=== PATIENT | female | born 1940 | race Caucasian/White ===

== ENCOUNTER 2023-04-07 11:25 | Emergency (ER) | payer MEDICARE, BC, SELFPAY ==
[2023-04-07 11:34] VITALS: BP 142/62
--- NOTE | 2023-04-07 11:53 | ED.GENMED ---
History of Present Illness
<Lily Peterson PA-C - Last Filed: 04/07/23 14:21>
General
Chief Complaint: Weakness
Source: patient
Exam Limitations: none
Time Seen by Provider: 04/07/23 11:53
Nursing documentation reviewed up to this point in time: agreed with
Travel History
Have you had any contact with someone who has COVID-19?: No
Do you have any symptoms of coronavirus? Fever > 100 degrees, chills, cough, shortness of breath, sore throat, loss of taste or smell, muscle aches, or headache?: No
History of Present Illness
History of Present Illness:
This is a 82-year-old female with a past medical history of A-fib on Xarelto and metoprolol, hypothyroidism, presenting to the emergency department today with generalized weakness and shortness of breath. She states that 3 d days ago, she felt
palpitations and shortness of breath and stated that this is how she feels when she goes into afib. She looked at her apple watch and noticed that her heart rate was in the 140s. She called the investment accounting clerk director of plant operations at her cardiology office who
advised her to take an extra metoprolol. She states that her palpitations stopped, she felt a bit better, and her heart rate came back to her normal range (the 60s-70s). She states that 2 days ago, she had a similar episodes of palpitations, but it
was not as intense, and it only lasted a few minutes and quickly resolved. Patient states that she has been on xarelto and metoprolol for many years and has not gone into afib. She states that since the two episodes, she has felt a bit fatigued and
had some mild shortness of breath. She denies fevers or chills, dizziness, lightheadedness, chest pain.
Past History
<Lily Peterson PA-C - Last Filed: 04/07/23 14:21>
Past History
ED Past Medical History: Arrthythmia, Cancer, GERD, Hypercholesterolemia and Hypothyroidism
ED Past Surgical History: Other
Social History
Tobacco: Former smoker
Alcohol: Daily (wine 1 glass)
Drug: None
Personal:
Living: with family
Employment: Retired
Family History
Family History: Other (Noncontributory)
Review of Systems
<Lily Peterson PA-C - Last Filed: 04/07/23 14:21>
Review of Systems
All Other Systems: ROS reviewed and negative except as documented in HPI and ROS
Phy Exam
<Lily Peterson PA-C - Last Filed: 04/07/23 14:21>
Physical Exam
Physical Exam:
Vitals: vital signs are stable
General: patient is well appearing and in no acute distress
Skin: warm and dry, no rashes or lesions
Cardiac: regular rate and rhythm, no murmurs, rubs, or gallops
Pulm: normal respiratory effort. Some scattered rhonchi at the lung bases.
Peripheral Vascular: no lower extremity edema, 2+ dp/pt pulses.
Abdomen: no abdominal tenderness
Neuro: AAOx3. CN II-XII intact.
Course
<Lily Peterson PA-C - Last Filed: 04/07/23 14:21>
Orders/Labs/Results
Orders:
Orders
04/07/23 11:34
EKG [Electrocardiogram (*1)] Urgent
Reason for Study: Fatigue / Weakness
EKG- Treatment ONCE
04/07/23 12:18
0.9% Sodium Chloride 250 ml [Nss] 250 ml IV BOLUS
04/07/23 12:20
CR Chest - 2 Views Urgent
Comment:
Reason For Exam: shortness of breath
04/07/23 12:40
Complete Blood Count/With Diff Urgent
Comprehensive Metabolic Panel Urgent
Abnormal Lab Results
04/07/23
12:40
RBC 4.13 L 10^6/uL
(4.20-5.40)
MPV 12.8 H fL
(7.4-10.4)
Chloride 108 H mmol/L
(98-107)
BUN 18 H mg/dl
(7-17)
04/07/23 12:40
04/07/23 12:40
Vital Signs
Initial and Last Documented VS:
Initial Vital Signs
Temp Pulse Resp BP Pulse Ox
98.4 F 57 18 142/62 100
04/07/23 11:34 04/07/23 11:34 04/07/23 11:34 04/07/23 11:34 04/07/23 11:34
Last Documented Vital Signs
Temp Pulse Resp BP Pulse Ox
98.4 F 77 22 143/72 99
04/07/23 11:34 04/07/23 13:45 04/07/23 13:45 04/07/23 13:31 04/07/23 13:12
<John Loyd, DO - Last Filed: 04/07/23 12:22>
Orders/Labs/Results
Orders:
Orders
04/07/23 11:34
EKG [Electrocardiogram (*1)] Urgent
Reason for Study: Fatigue / Weakness
EKG- Treatment ONCE
04/07/23 12:18
0.9% Sodium Chloride 250 ml [Nss] 250 ml IV BOLUS
04/07/23 12:20
CR Chest - 2 Views Urgent
Comment:
Reason For Exam: shortness of breath
04/07/23 12:40
Complete Blood Count/With Diff Urgent
Comprehensive Metabolic Panel Urgent
Abnormal Lab Results
04/07/23
12:40
RBC 4.13 L 10^6/uL
(4.20-5.40)
MPV 12.8 H fL
(7.4-10.4)
Chloride 108 H mmol/L
(98-107)
BUN 18 H mg/dl
(7-17)
04/07/23 12:40
04/07/23 12:40
Vital Signs
Initial and Last Documented VS:
Initial Vital Signs
Temp Pulse Resp BP Pulse Ox
98.4 F 57 18 142/62 100
04/07/23 11:34 04/07/23 11:34 04/07/23 11:34 04/07/23 11:34 04/07/23 11:34
Last Documented Vital Signs
Temp Pulse Resp BP Pulse Ox
98.4 F 77 22 143/72 99
04/07/23 11:34 04/07/23 13:45 04/07/23 13:45 04/07/23 13:31 04/07/23 13:12
<Lily Peterson PA-C - Last Filed: 04/07/23 14:21>
MDM/Problems Addressed
Differential Diagnosis Includes:
ddx include upper respiratory tract infection, atrial fibrillation, atrial flutter, metoprolol side effect, pneumonia
MDM/Problems Addressed:
weakness
shortness of breath
Chronic conditions affecting care: HTN, Arrhythmia and Cancer (hx of breast cancer)
Acute Exacerbation and/or Progression of Chronic Illness: HTN
<Lily Peterson PA-C - Last Filed: 04/07/23 14:21>
*Radiology
Radiology exam reviewed: preliminary read by ED provider (no acute cardiopulmonary abnormality)
*Pulse Oximetry
Patient hypoxic: no
*Recycle Worker Interpretation
Rate: normal
Interpretation: normal
Heart Rate: 75
Rhythm: sinus
*Critical Care Note
Total Time (30-74mins, 75-104mins- exclusive of procedures): Not Applicable
Data Reviewed
Review of Other/Old Records Reveals: Records (Reviewed ER physician documentation from 10/16/2022, reviewed ER physician documentation from 12/08/2018)
Source: patient
<Lily Peterson PA-C - Last Filed: 04/07/23 14:21>
Patient Management
Escalation/DeEscalation of care consider admission/obs:
82-year-old female with past medical history of A-fib on Xarelto and metoprolol, presenting to emergency department today with shortness of breath and fatigue following an episode of A-fib that occurred 3 days ago. She states Here in the emergency
department, her vital signs are stable and she has not gone into here. On her physical exam, she is well appearing and she had some scattered rhonchi at the bases. Her CXR did not show any acute cardiopulmonary abnormality. We gave her 500 ml NS.
She states that she feels like her symptoms have largerly improved and only admits to some mild fatigue and weakness at this point. She is stable for discharge, she will follow up with Dr. Marsh, her investment accounting clerk, soon.
ED Attending Note
<Lily Peterson PA-C - Last Filed: 04/07/23 14:21>
-
Portions of this chart may have been created with voice recognition software.� Occasional wrong word or��sound alike� substitutions may have occurred due to the inherent limitations of voice recognition software.
<John Loyd DO - Last Filed: 04/07/23 12:22>
ED Attending Note
Patient seen and examined by attending physician: Yes
I performed the substantive portion of visit, reviewed & personally made and approve the management plan that is documented in note by myself or AISHA.: Yes
I performed a history and physical exam of patient and discussed management with resident, I reviewed resident's note and agree with documented findings and plan of care.: Yes
ED Attending Note:
I evaluated patient at bedside. The patient does have a history of A-fib on Xarelto and felt she went into A-fib recently. She called her investment accounting clerk who recommend she take an extra dose of Toprol. Currently she does not have sensation of A-fib
or palpitations. She does have some very mild shortness of breath which is overall improved compared to prior. She does some rhonchi on exam. Currently she is in a sinus rhythm with rates in the 60s and sats are 98% on room air and she does not
appear to be in any distress. Will give some IV fluids.
Discharge Plan
Departure
Patient Disposition: Home (Routine Discharge)
Date of Disposition: 04/07/23
Time of Disposition: 13:52
Patient with high blood pressure during this ER visit?: Yes
Condition: Good
Discharge Problem:
Weakness
Instructions: Generalized Weakness (DC), Shortness of Breath, Adult ED, BLOOD PRESSURE
Prescriptions:
No Action
levothyroxine [Levoxyl] 112 MCG tablet
112 mcg PO DAILY
pitavastatin calcium [Livalo] 2 MG tablet
2 mg PO DAILY
rivaroxaban [Xarelto] 20 MG tablet
20 mg PO QPM Qty: 15 0RF
metoprolol succinate [Toprol XL] 25 MG tablet extended release 24 hr
25 mg PO DAILY Qty: 30 0RF
albuterol sulfate [ProAir HFA] 90 mcg/actuation HFA aerosol inhaler
1 puff inhalation Q4HPRN PRN (Reason: shortness of breath) Qty: 8.5 0RF
azithromycin [Zithromax] 200 mg/5 mL suspension for reconstitution
See Rx Instructions .ROUTE .COMPLEX Qty: 30 0RF
Rx Instructions:
200 mg daily for 4 days, starting 10/17/22
Referrals:
Bret Marsh MD [Active] - Call in 1-3 days for appt
Activity Restrictions/Additional Instructions:
Please follow up with your primary care provider.
Please call Dr. Marsh's office for an appointment.
Please return to the emergency department should you experience CHEST PAIN, SHORTNESS OF BREATH, CONFUSION, DIZZINESS, FAINTING SPELLS, OR OTHER SYMPTOMS CONCERNING TO YOU.
Interventions
Interventions:
*Risk Screen - Suicide Last Done: 04/07/23 12:30
*General Assessment Last Done: 04/07/23 12:30
*Neglect/Abuse Screening Last Done: 04/07/23 12:30
*ED COVID-19 Vaccine History Last Done: 04/07/23 12:30
ED- Cardiac Assessment Last Done: 04/07/23 12:30
ED- Neurological Assessment Last Done: 04/07/23 12:30
ED- Pulmonary Assessment Last Done: 04/07/23 12:30
[2023-04-07] MEDS: NSS 250 IV (12:42)
[2023-04-07 12:57] LABS: % Basophils 1.2 % (0-2); % Eosinophils 2.7 % (0-6); % Immature Granulocytes 0.2 % (0-0.5); % Lymphocytes 27.3 % (20.5-51.1); % Monocytes 8.1 % (1.7-9.3); % Neutrophils 60.5 % (42.2-75.2); Absolute Basophils 0.1 10^3/uL (0-0.2); Absolute Eosinophils 0.1 10^3/uL (0-0.7); Absolute Lymphocytes 1.3 10^3/uL (1.2-3.4); Absolute Monocytes 0.4 10^3/uL (0.1-0.6); Absolute Neutrophils 2.9 10^3/uL (1.4-6.5); Hematocrit 37.3 % (37.0-47.0); Hemoglobin 12.6 g/dL (12.0-16.0); Mean Corp Hgb Conc. 33.8 g/dL (33.0-37.0); Mean Corpuscular Hgb 30.5 pg (27.0-31.0); Mean Corpuscular Volume 90.3 fL (81.0-99.0); Mean Platelet Volume 12.8 fL (7.4-10.4); Nucleated Red Blood Cells % 0 %; Platelet Count 138 10^3/uL (130-400); Red Blood Cell Count 4.13 10^6/uL (4.20-5.40); Red Cell Dist. Width 14.2 % (11.5-14.5); White Blood Cell Count 4.8 10^3/uL (4.8-10.8)
[2023-04-07 13:08] LABS: ALT (SGPT) 18 U/L (0-35); AST (SGOT) 27 U/L (14-36); Albumin 4.1 g/dl (3.5-5.0); Alkaline Phosphatase 48 U/L (38-126); Blood Urea Nitrogen 18 mg/dl (7-17); Calcium 9.2 mg/dl (8.4-10.2); Carbon Dioxide 28 mmol/L (22-30); Chloride 108 mmol/L (98-107); Glucose 84 mg/dl (70-99); Potassium 4.2 mmol/L (3.5-5.1); Sodium 139 mmol/L (135-145); Total Bilirubin 0.5 mg/dl (0.2-1.3); Total Protein 6.3 g/dl (6.3-8.2); eGFR > 60.00
[2023-04-07 13:31] VITALS: BP 143/72
== END 2023-04-07 14:12 | disposition home or self-care (01) ==
LOC: EMR 11:25
PROVIDERS: Physician Assistant; EMERGENCY PHYSICIAN Emergency Medicine; FAMILY PHYSICIAN Family Medicine
DX: R53.1 Weakness (principal); I10 Essential (primary) hypertension; E03.9 Hypothyroidism, unspecified; Z87.891 Personal history of nicotine dependence
CPT/HCPCS: 99285; 96360; 71046; 80053; 85025; 93005

== ENCOUNTER → 2023-05-05 11:08 | Outpatient (REF) | payer MEDICARE, BC, SELFPAY | LOC: DHCBS HW 11:08 | PROVIDERS: ATTENDING PHYSICIAN Nurse Practitioner; FAMILY PHYSICIAN Family Medicine | DX: R06.02 Shortness of breath (principal); R53.83 Other fatigue | CPT/HCPCS: 93306 ==

== ENCOUNTER → 2023-11-17 07:19 | Outpatient (REF) | payer MEDICARE, BC, SELFPAY | LOC: PAVMRI 07:19 | PROVIDERS: ATTENDING PHYSICIAN Physician Assistant; FAMILY PHYSICIAN Family Medicine | DX: M54.14 Radiculopathy, thoracic region (principal); M54.9 Dorsalgia, unspecified | CPT/HCPCS: 72146 ==

== ENCOUNTER → 2023-11-18 08:53 | Outpatient (REF) | payer MEDICARE, BC, SELFPAY | LOC: MRI 3T 08:53 | PROVIDERS: ATTENDING PHYSICIAN Physician Assistant; FAMILY PHYSICIAN Family Medicine | DX: M54.50 Low back pain, unspecified (principal) | CPT/HCPCS: 72148 ==

== ENCOUNTER 2024-03-29 13:26 | Emergency (ER) | payer MEDICARE, BC, SELFPAY ==
[2024-03-29 13:35] VITALS: BP 151/66
[2024-03-29 14:03] LABS: Urine Albumin Negative (Neg - Trace); Urine Bilirubin Negative (Negative); Urine Character Clear (Clear); Urine Color Yellow; Urine Glucose Negative (Negative); Urine Ketone Negative (Negative); Urine Leukocyte Negative (Negative); Urine Nitrite Negative (Negative); Urine Occult Blood Negative (Negative); Urine Urobilinogen Negative (Neg - 1+)
[2024-03-29 14:05] LABS: % Basophils 1.1 % (0-2); % Eosinophils 1.4 % (0-6); % Immature Granulocytes 0.2 % (0-0.5); % Lymphocytes 32.4 % (20.5-51.1); % Monocytes 7.9 % (1.7-9.3); Absolute Basophils 0.1 10^3/uL (0-0.2); Absolute Eosinophils 0.1 10^3/uL (0-0.7); Absolute Lymphocytes 1.8 10^3/uL (1.2-3.4); Absolute Monocytes 0.5 10^3/uL (0.1-0.6); Absolute Neutrophils 3.2 10^3/uL (1.4-6.5); Hematocrit 38.1 % (37.0-47.0); Hemoglobin 12.9 g/dL (12.0-16.0); Mean Corp Hgb Conc. 33.9 g/dL (33.0-37.0); Mean Corpuscular Volume 88.6 fL (81.0-99.0); Mean Platelet Volume 11.9 fL (7.4-10.4); Nucleated Red Blood Cells % 0 %; Platelet Count 148 10^3/uL (130-400); Red Cell Dist. Width 13.6 % (11.5-14.5); White Blood Cell Count 5.7 10^3/uL (4.8-10.8)
[2024-03-29 14:12] LABS: COVID-19 Antigen Negative (Negative)
[2024-03-29 14:13] LABS: ALT (SGPT) 15 U/L (0-35); AST (SGOT) 25 U/L (14-36); Albumin 4.2 g/dl (3.5-5.0); Alkaline Phosphatase 48 U/L (38-126); Blood Urea Nitrogen 10 mg/dl (7-17); Calcium 8.9 mg/dl (8.4-10.2); Carbon Dioxide 28 mmol/L (22-30); Chloride 104 mmol/L (98-107); Glucose 83 mg/dl (70-99); Potassium 4.1 mmol/L (3.5-5.1); Sodium 136 mmol/L (135-145); Total Bilirubin 0.5 mg/dl (0.2-1.3); Total Protein 6.5 g/dl (6.3-8.2); eGFR > 60.00
[2024-03-29 14:27] LABS: Monotest Negative (Negative)
[2024-03-29 15:08] VITALS: BMI 23.3
[2024-03-29 15:26] VITALS: BP 177/72
--- NOTE | 2024-03-29 15:36 | ED.GENMED ---
History of Present Illness
General
Chief Complaint: Weakness
Source: patient
Exam Limitations: none
Time Seen by Provider: 03/29/24 15:01
Nursing documentation reviewed up to this point in time: agreed with
History of Present Illness
History of Present Illness:
83 y/o F with h/o PAF on xarelto, metoprolol, GERD, hld, HYPOTHYROID
says she has been havinga few weeks of fatigue, low energy, and feeling like her legs are weaker than they should be.
She walks unassisted and has not needed to use an assistive device to walk around since this started but she feels like her legs may give out on her or she is just not sure of herself. Seems to get worse as the day goes on. When she first gets out
of bed she does have some back pain but that seems to also dissipate but then the weakness progresses. She has not had it extend past her legs. She has no trouble swallowing and no ptosis of her eyelids or fatigue with chewing. Patient has not
had any chest pain, exertional pain but has felt some intermittent dyspnea which sometimes is at rest and sometimes with walking. However it is not consistent. She has not felt her heart race or any palpitations. Pretty much patient lives in
sinus rhythm.
She saw her doctor about a week and a half ago who did some lab work and told her that she had maybe a low vitamin B12 and gave her vitamin B12 tablets. She is felt no difference since taking that.
Patient has not had any bleeding, numbness, tingling, weakness in the legs, incontinence or urinary retention, significant back pain, stiffness in her hips or shoulders, neck pain, headache.
It is really unclear why she is here today other than feeling frustrated by the fact that she still so fatigued. No new symptoms occur today. She has not had a recent vaccine or recent illness that she knows of
Past History
Past History
ED Past Medical History: Arrthythmia, Cancer, GERD, Hypercholesterolemia and Hypothyroidism
ED Past Surgical History: Other
Social History
Tobacco: Former smoker
Alcohol: Daily (wine 1 glass)
Drug: None
Personal:
Living: with family
Employment: Retired
Family History
Family History: Other (Noncontributory)
Review of Systems
Review of Systems
Allergies reviewed?: Yes
All Other Systems: Not applicable
Phy Exam
Physical Exam
Physical Exam:
GENERAL: Alert , in no apparent distress
HEAD: NCAT
EYE: pupils equal and reactive, no nystagmus, no photophobia
NECK: Supple,full rom, nontender
ENT: o/p clr, mmm.
CARDIAC: Regular rate and rhythm . no edema
LUNGS: Clear breath sounds bilaterally, no acute respiratory distress, no wheezes/rales/rhonchi
ABDOMEN: Soft, without focal tenderness, no r/g, no cvat
NEUROLOGICAL: Alert and orientedx 4, cn intact, no facial asymmetry, 5/5 strength in UE/LE, sensation intact, romberg neg, ambulates without assistance, neg pronator drift 2-3+ PATELLAR REFLEXES 2+ achilles reflex;
SKIN: Warm and dry, skin intact.
MUSCULOSKELETAL: No edema, well perfused.
back: nontneder
neg straight leg raise b/l
sensation intact
PSYCH: Normal and appropriate interaction.
Course
Orders/Labs/Results
Orders:
Orders
03/29/24 13:50
COVID-19 Antigen Urgent
Source: Nasal Swab
Complete Blood Count/With Diff Urgent
Comprehensive Metabolic Panel Urgent
Monotest Urgent
Urinalysis Reflex To Culture Urgent
Date Specimen was Collected: 03/29/24
Time Specimen was Collected: 13:38
Influenza A+B Rapid Molecular Urgent
KEVIN Source: Nasal Swab
Specimen Description:
Date Specimen was Collected: 03/29/24
Time Specimen was Collected: 13:38
03/29/24 15:04
Electrocardiogram (*1) Urgent
Reason for Study: Fatigue / Weakness
EKG- Treatment ONCE
03/29/24 15:29
Bladder Scan- Treatment ONCE
CR Chest - 2 Views Urgent
Comment:
Reason For Exam: fatigue, sob
Lumbar Spine Complete, 4 View [CR Lumbar Spine Comp Min 4 Vw*] Urgent
Comment:
Reason For Exam: leg weakness
03/29/24 15:30
Orthostatic VS- Treatment ONCE
NT-proBNP Urgent
Troponin I Urgent
03/29/24 16:06
Add On- LAB Urgent
Tests Added?: tsh reflex t4
Abnormal Lab Results
03/29/24
13:50
MPV 11.9 H fL
(7.4-10.4)
03/29/24 13:50
03/29/24 13:50
Vital Signs
Initial and Last Documented VS:
Initial Vital Signs
Temp Pulse Resp BP Pulse Ox
36.6 C 60 16 151/66 99
03/29/24 13:35 03/29/24 13:35 03/29/24 13:35 03/29/24 13:35 03/29/24 13:35
Last Documented Vital Signs
Temp Pulse Resp BP Pulse Ox
36.6 C 66 21 177/72 98
03/29/24 13:35 03/29/24 15:30 03/29/24 15:30 03/29/24 15:26 03/29/24 15:30
MDM/Problems Addressed
Differential Diagnosis Includes:
hypothyoid, viral syndrome, spinal stenosis, uti, PMR
MDM/Problems Addressed:
83 y/o F
PAF on eliquis, hypothyorid
here with af ew weeks of feeling gen fatigue and leg fatigue/weakness
not focal
able to walk
able to urinate
minimal back pain but worse in the morning, not significant
no exertional cp
some mild sob at times
pt appears well
able to get herself up and walk unassisted
has strength, reflexes, sensation, ful lROM of her LE
she has no ptosis or trouble swallowing
vitals slightly hypertensive
no AF, pt is in sinus with occ pACS
orthostatics neg
labs unremarkable
added on cardiac markers, bnp, and tsh
ua neg
reviweing old records, pt had previous leg weakness secondary to lumbar deg disc disease and some significant stenosis but not central canal on lumbar MRI in 2019 and she went to PT/rehab;
ED Attending Note
-
Portions of this chart may have been created with voice recognition software.� Occasional wrong word or��sound alike� substitutions may have occurred due to the inherent limitations of voice recognition software.
Discharge Plan
Departure
Condition: Fair
Covid-19: Not Applicable
Discharge Problem:
Fatigue, Leg weakness
Instructions: Generalized Weakness (DC)
Prescriptions:
No Action
levothyroxine [Levoxyl] 112 MCG tablet
112 mcg PO DAILY
pitavastatin calcium [Livalo] 2 MG tablet
2 mg PO DAILY
rivaroxaban [Xarelto] 20 MG tablet
20 mg PO QPM Qty: 15 0RF
metoprolol succinate [Toprol XL] 25 MG tablet extended release 24 hr
25 mg PO DAILY Qty: 30 0RF
albuterol sulfate [ProAir HFA] 90 mcg/actuation HFA aerosol inhaler
1 puff inhalation Q4HPRN PRN (Reason: shortness of breath) Qty: 8.5 0RF
azithromycin [Zithromax] 200 mg/5 mL suspension for reconstitution
See Rx Instructions .ROUTE .COMPLEX Qty: 30 0RF
Rx Instructions:
200 mg daily for 4 days, starting 10/17/22
Referrals:
Fidel Bunch DO [Family Provider] -
Interventions
Interventions:
*Risk Screen - Suicide Last Done: 03/29/24 13:38
*General Assessment Last Done: 03/29/24 15:09
*Neglect/Abuse Screening Last Done: 03/29/24 15:09
ED- Cardiac Assessment Last Done: 03/29/24 15:09
ED- Neurological Assessment Last Done: 03/29/24 15:09
ED- Pulmonary Assessment Last Done: 03/29/24 15:09
Discharge Date and Time
Print Language: CZECH
[2024-03-29 16:02] VITALS: BP 160/87; BP 173/76; BP 177/80; PULSE 62; PULSE 63; PULSE 65
[2024-03-29 17:19] LABS: NT-proBNP 374 pg/ml; Troponin I 0.014 ng/ml
[2024-03-29 17:47] VITALS: BP 156/65
[2024-03-29 18:41] LABS: TSH Reflex To Free T4 0.52 uIU/ml (0.47-4.68)
== END 2024-03-29 18:37 | disposition home or self-care (01) ==
LOC: EMR 13:26
PROVIDERS: Emergency Medicine; Physician Assistant; EMERGENCY PHYSICIAN Emergency Medicine; FAMILY PHYSICIAN Family Medicine
DX: R53.83 Other fatigue (principal); M62.81 Muscle weakness (generalized); R06.02 Shortness of breath; M54.9 Dorsalgia, unspecified; Z11.52 Encounter for screening for COVID-19; I48.0 Paroxysmal atrial fibrillation; K21.9 Gastro-esophageal reflux disease without esophagitis; E78.00 Pure hypercholesterolemia, unspecified; E03.9 Hypothyroidism, unspecified; M43.16 Spondylolisthesis, lumbar region; M48.061 Spinal stenosis, lumbar region without neurogenic claudication; Z79.01 Long term (current) use of anticoagulants; Z79.899 Other long term (current) drug therapy; Z87.891 Personal history of nicotine dependence; Z88.1 Allergy status to other antibiotic agents
CPT/HCPCS: 99285; 51798; 71046; 72110; 80053; 81003; 83880; 84443; 84484; 85025; 86308; 87502; 87811; 93005

== ENCOUNTER → 2024-06-11 14:51 | Outpatient (REF) | payer MEDICARE, BC, SELFPAY | LOC: PAVMRI 14:51 | PROVIDERS: ATTENDING PHYSICIAN Nurse Practitioner Adult Health; FAMILY PHYSICIAN Family Medicine | DX: G31.84 Mild cognitive impairment of uncertain or unknown etiology (principal) | CPT/HCPCS: 70553; A9575 ==

== ENCOUNTER → 2024-07-11 06:55 | Outpatient (REF) | payer MEDICARE, BC, SELFPAY ==
[2024-07-11 08:03] LABS: Erythrocyte Sed Rate 13 mm/hour (0-20)
[2024-07-11 08:15] LABS: Creatine Phosphokinase 43 U/L (30-135); Glucose 86 mg/dl (70-99)
[2024-07-11 08:28] LABS: C-Reactive Protein < 5.00 mg/L (0.0-10.00)
[2024-07-11 09:47] LABS: Folate 16.1 ng/ml (2.76-20); Vitamin B12 716 pg/ml (239-931)
[2024-07-12 00:44] LABS: IgM 300 mg/dl (40-230)
[2024-07-12 12:15] LABS: Lyme Antibody Screen, EIA Negative (Negative)
== END ==
LOC: REG 06:55
PROVIDERS: ATTENDING PHYSICIAN Specialist; FAMILY PHYSICIAN Family Medicine
DX: R53.1 Weakness (principal); R79.0 Abnormal level of blood mineral; G60.3 Idiopathic progressive neuropathy
CPT/HCPCS: 36415; 82085; 82550; 82607; 82746; 82784; 82947; 84155; 84165; 85652; 86140; 86618

== ENCOUNTER → 2024-07-24 13:42 | Outpatient (REF) | payer MEDICARE, BC, SELFPAY | LOC: MRI 13:42 | PROVIDERS: ATTENDING PHYSICIAN Nurse Practitioner Family; FAMILY PHYSICIAN Family Medicine | DX: R53.1 Weakness (principal); M51.360 Other intervertebral disc degeneration, lumbar region with discogenic back pain only | CPT/HCPCS: 72148 ==

== ENCOUNTER → 2024-07-25 12:52 | Outpatient (REF) | payer MEDICARE, BC, SELFPAY | LOC: RCS 12:52 | PROVIDERS: ATTENDING PHYSICIAN Physician Assistant; FAMILY PHYSICIAN Family Medicine | DX: I48.0 Paroxysmal atrial fibrillation (principal); R06.02 Shortness of breath; I35.1 Nonrheumatic aortic (valve) insufficiency | CPT/HCPCS: 93306 ==

== ENCOUNTER 2025-01-10 06:58 | Emergency (ER) | payer MEDICARE, BC, SELFPAY ==
[2025-01-10 07:04] VITALS: BP 130/67
--- NOTE | 2025-01-10 07:14 | ED.GENMED ---
History of Present Illness
General
Chief Complaint: Back Pain
Source: patient
Exam Limitations: none
Time Seen by Provider: 01/10/25 07:13
Nursing documentation reviewed up to this point in time: agreed with
History of Present Illness
History of Present Illness:
84 yo female with h/o arthritis, thoracic radiculopathy, hypothyroid, hyperlipidemia, right breast CA with mastectomy 2014, chronic fatigue, chronic shortness of breath, PAF on Xarelto, chronic back pain presents for exacerbation of this pain. Pain
08/23 right lower back with radiation to right buttock and lateral hip. She reports that the pain worsened over the past few days and made it difficult for her to get out of bed. The patient used capsaicin cream with little relief. She has taken no
other medication for the pain. She states she was pain-free and mobile until four days ago when the present episode began. She denies any recent overuse or injury, denies leg weakness beyond baseline, loss of bowel or bladder control, and systemic
symptoms like fever or chills. Denies CP, SOB, abdominal pain, constipation, UTI symptoms.
Patient with history of chronic back pain and in November 2023 had MRI of lumbar and thoracic areas, multilevel DJD of lumbar, thoracic MRI was clear and had no DJD, pain at that time thought to be due to lymphedema and implant.
Last echocardiogram on 07/25/2024 EF 76%, mild to moderate aortic and tricuspid regurgitation, no significant findings from previous year.
Past History
Past History
ED Past Medical History: Arrthythmia, Cancer, GERD, Hypercholesterolemia and Hypothyroidism
Social History
Tobacco: Former smoker
Alcohol: Daily (wine 1 glass)
Drug: None
Personal:
Living: with family
Employment: Retired
Family History
Family History: Other (Noncontributory)
Review of Systems
Review of Systems
Allergies reviewed?: Yes
All Other Systems: ROS reviewed and negative except as documented in HPI and ROS
: Denies incontinence
Phy Exam
Physical Exam
Physical Exam:
GENERAL: No acute distress. A&Ox3.
CONSTITUTIONAL: Afebrile.
EYES: clear, conjunctivae normal
ENMT: moist mucus membranes, Pharynx nl
RESPIRATORY: Regular respirations, nonlabored, lungs clear.
CARDIOVASCULAR: Regular rate and rhythm, no murmurs, no rubs. Normal pedal pulses, brisk capillary refill, radial pulses normal.
GI: Soft, nontender, normal BS, no palpable masses or bruits
MUSCULOSKELETAL: Entire spine palpated and pt states 'yes' when asked if it it tender. Most tender to palpation R lower back and upper buttock. SLR bilaterally elicits pain, R > L. Full ROM. Pelvis non tender. No edema. Well perfused.
SKIN: Warm, dry, pink
PSYCH: Normal mood and affect. Well kept, interactive and appropriate
NEUROLOGIC: Awake, alert and oriented, forgetful regarding past. No focal neurological deficits, strength 5/5 equal throughout.
Course
Orders/Labs/Results
Orders:
Orders
01/10/25 07:55
Dexamethasone [Decadron] 10 mg PO NOW STA
01/10/25 07:56
Acetaminophen [Tylenol] 650 mg PO NOW STA
01/10/25 08:33
CRP [C-Reactive Protein] Urgent
Complete Blood Count/With Diff Urgent
Comprehensive Metabolic Panel Urgent
01/10/25 09:41
Urinalysis Reflex To Culture Urgent
Date Specimen was Collected: 01/10/25
Time Specimen was Collected: 09:37
Urine Microscopic Reflex Cult Urgent
Abnormal Lab Results
01/10/25 01/10/25
08:33 09:41
MCHC 32.8 L g/dL
(33.0-37.0)
MPV 11.9 H fL
(7.4-10.4)
Absolute Lymphs (auto) 1.0 L 10^3/uL
(1.2-3.4)
Neutrophils % 77.4 H %
(42.2-75.2)
Lymphocytes % 12.8 L %
(20.5-51.1)
C-Reactive Protein 27.60 H mg/L
(0.0-10.00)
Urine Ketones 2+ A
(Negative)
Ur Occult Blood Reflex 3+ A
(Negative)
Urine RBC 11-15 A /HPF
(0-2)
Urine Bacteria (Reflex) Few A
(Negative)
Urine Albumin (Reflex) 1+ A
(Neg - Trace)
01/10/25 08:33
01/10/25 08:33
Vital Signs
Initial and Last Documented VS:
Initial Vital Signs
Temp Pulse Resp BP Pulse Ox
98.8 F 71 18 130/67 99
01/10/25 07:04 01/10/25 07:04 01/10/25 07:04 01/10/25 07:04 01/10/25 07:04
Last Documented Vital Signs
Temp Pulse Resp BP Pulse Ox
98.2 F 72 16 124/71 94
01/10/25 10:30 01/10/25 10:30 01/10/25 10:30 01/10/25 10:30 01/10/25 10:30
MDM/Problems Addressed
Differential Diagnosis Includes:
Acute exacerbation of chronic back pain, lumbar strain, herniated disc, osteoarthritis, sciatica, discitis
MDM/Problems Addressed:
84 yo female with h/o arthritis, thoracic radiculopathy, hypothyroid, hyperlipidemia, right breast CA with mastectomy 2014, chronic fatigue, chronic shortness of breath, PAF on Xarelto, chronic back pain presents for exacerbation of this pain. Pain
7/10 right lower back with radiation to right buttock and lateral hip. She reports that the pain worsened over the past few days and made it difficult for her to get out of bed. The patient used capsaicin cream with little relief. She has taken no
other medication for the pain. She states she was pain-free and mobile until four days ago when the present episode began. She denies any recent overuse or injury, denies leg weakness beyond baseline, loss of bowel or bladder control, and systemic
symptoms like fever or chills. Denies CP, SOB, abdominal pain, constipation, UTI symptoms.
Records reviewed: Patient with history of chronic back pain and in November 2023 had MRI of lumbar and thoracic areas, multilevel DJD of lumbar, thoracic MRI was clear and had no DJD, pain at that time thought to be due to lymphedema and implant.
No neuro deficits, no indication of AAA, no infectious findings, no cauda equina
The patient presented with exacerbated chronic back pain that has increased in severity over the past few days, significantly affecting her mobility. The examination indicated pain with movement and specific positions. There was no new systemic,
neurological, or bladder/bowel issue noted during the examination.
She does not remember having an MRI, doing P/T and clearly there is an element of dementia/memory problems, forgetfulness.
She does not know why she hasn't taken anything for pain such as Tylenol. at bedside gave her one of his pain pills early this a.m., is not sure what it was but says Hydrocodone sounds familiar.
agrees she has been complaining more than usual of back pain in the past 3 days
9:15 AM:
CBC normal
CMP normal
CRP 27.60
After Tylenol and Decadron, patient is out of bed and ambulating well saying her back 'still hurts' but she appears to be in no distress and is ambulating independently at a brisk gait with no assistive devices.
Symptoms are most likely consistent with exacerbation of her chronic back pain
Encouraged her to take Tylenol on a regular basis and I sent a prescription for a short burst of steroid to her pharmacy
She will follow-up with her PCP after the holiday weekend.
*Pulse Oximetry
SaO2: 98
Oxygen Mode of Delivery: Room air
Patient hypoxic: not evaluated
*Critical Care Note
Total Time (30-74mins, 75-104mins- exclusive of procedures): Not Applicable
ED Attending Note
-
Portions of this chart may have been created with voice recognition software.� Occasional wrong word or��sound alike� substitutions may have occurred due to the inherent limitations of voice recognition software.
Discharge Plan
Departure
Patient Disposition: Home (Routine Discharge)
Date of Disposition: 01/10/25
Time of Disposition: 09:59
Patient with high blood pressure during this ER visit?: No
Condition: Good
Discharge Problem:
Acute bilateral low back pain with right-sided sciatica
Instructions: Low Back Pain (DC), Sciatica (DC)
Prescriptions:
New
prednisone 20 mg tablet
40 mg PO DAILY Qty: 6 0RF
No Action
levothyroxine [Levoxyl] 112 MCG tablet
112 mcg PO DAILY
pitavastatin calcium [Livalo] 2 MG tablet
2 mg PO DAILY
rivaroxaban [Xarelto] 20 MG tablet
20 mg PO QPM Qty: 15 0RF
metoprolol succinate [Toprol XL] 25 MG tablet extended release 24 hr
25 mg PO DAILY Qty: 30 0RF
albuterol sulfate [ProAir HFA] 90 mcg/actuation HFA aerosol inhaler
1 puff inhalation Q4HPRN PRN (Reason: shortness of breath) Qty: 8.5 0RF
azithromycin [Zithromax] 200 mg/5 mL suspension for reconstitution
See Rx Instructions .ROUTE .COMPLEX Qty: 30 0RF
Rx Instructions:
200 mg daily for 4 days, starting 10/17/22
Referrals:
Fidel Bunch DO [Family Provider, Family Practice] - Follow up in 5-7 days
Activity Restrictions/Additional Instructions:
As we discussed, take Tylenol 1000 mg twice a day for the next 3 days to see if it helps.
I sent a prescription to your pharmacy for prednisone 40 mg a day for the next 3 days.
See your doctor next week if your pain is not much improved by then.
Interventions
Interventions:
*Risk Screen - Suicide Last Done: 01/10/25 10:30
*General Assessment Last Done: 01/10/25 09:55
*Neglect/Abuse Screening Last Done: 01/10/25 07:30
*ED- Fall Risk Assessment Last Done: 01/10/25 07:30
*ED COVID-19 Vaccine History Last Done: 01/10/25 09:55
*ED Influenza Vaccine History Last Done: 01/10/25 09:55
*Nursing Disposition Last Done: 01/10/25 10:30
ED-Musculoskeletal Assessment Last Done: 01/10/25 07:28
Discharge Date and Time
Discharge Date/Time: 01/10/25 10:30
Print Language: SOUTH [place]UD[place]
[2025-01-10 07:28] VITALS: BMI 22.0
[2025-01-10] MEDS: TYLENOL 650 MG PO (08:28)
[2025-01-10] MEDS: DECADRON 10 MG PO (08:29)
[2025-01-10 08:50] LABS: Hematocrit 38.7 % (37.0-47.0); Hemoglobin 12.7 g/dL (12.0-16.0); Mean Corp Hgb Conc. 32.8 g/dL (33.0-37.0); Mean Corpuscular Volume 90.0 fL (81.0-99.0); Nucleated Red Blood Cells % 0 %; Platelet Count 147 10^3/uL (130-400); Red Cell Dist. Width 13.2 % (11.5-14.5)
[2025-01-10 09:09] LABS: ALT (SGPT) 13 U/L (0-35); AST (SGOT) 20 U/L (14-36); Albumin 4.2 g/dl (3.5-5.0); Alkaline Phosphatase 102 U/L (38-126); Blood Urea Nitrogen 12 mg/dl (7-17); Calcium 9.2 mg/dl (8.4-10.2); Carbon Dioxide 30 mmol/L (22-30); Chloride 103 mmol/L (98-107); Estimated Creatinine Clearance 38 ml/min; Glucose 92 mg/dl (70-99); Potassium 4.0 mmol/L (3.5-5.1); Sodium 136 mmol/L (135-145); Total Protein 6.9 g/dl (6.3-8.2); eGFR > 60.00
[2025-01-10 09:12] LABS: C-Reactive Protein 27.60 mg/L (0.0-10.00)
[2025-01-10 10:16] LABS: Urine Character Clear (Clear)
[2025-01-10 10:30] VITALS: BP 124/71
[2025-01-10 11:18] LABS: Urine White Cell 0-2 /HPF (0-5)
== END 2025-01-10 10:30 | disposition home or self-care (01) ==
LOC: EMR 06:58
PROVIDERS: Registered Nurse; EMERGENCY PHYSICIAN Student in an Organized Health Care Education/Training Program; FAMILY PHYSICIAN Family Medicine
DX: M54.41 Lumbago with sciatica, right side (principal); G89.29 Other chronic pain; I48.0 Paroxysmal atrial fibrillation; E78.00 Pure hypercholesterolemia, unspecified; I08.2 Rheumatic disorders of both aortic and tricuspid valves; E03.9 Hypothyroidism, unspecified; R53.82 Chronic fatigue, unspecified; K21.9 Gastro-esophageal reflux disease without esophagitis; M47.816 Spondylosis without myelopathy or radiculopathy, lumbar region; M54.14 Radiculopathy, thoracic region; Z79.01 Long term (current) use of anticoagulants; Z87.891 Personal history of nicotine dependence; Z85.3 Personal history of malignant neoplasm of breast; Z90.11 Acquired absence of right breast and nipple
CPT/HCPCS: 99283; 80053; 81003; 81015; 85025; 86140

== ENCOUNTER 2025-02-10 12:23 | Emergency (ER) | payer MEDICARE, BC, SELFPAY ==
[2025-02-10 12:25] VITALS: BP 147/85
--- NOTE | 2025-02-10 14:53 | ED.GENMED ---
History of Present Illness
General
Chief Complaint: Back Pain
Source: patient and spouse
Exam Limitations: none
Time Seen by Provider: 02/10/25 14:39
Nursing documentation reviewed up to this point in time: agreed with
History of Present Illness
History of Present Illness:
84-year-old female with a past medical history as noted presents to the ER for evaluation of low back pain. Patient reports that she has had some chronic pains in her low back�was seen at the end of December for some back pain. She says that since
yesterday it seems to have been a bit worse she had some trouble sleeping last night. No clear triggering or relieving factor noted. She has been able to ambulate. She did take some leftover prednisone from prior prescription but it did not seem
to help. She has not taken anything else for her symptoms. She denies any specific fall or injury although she does admit that from time to time she will bend over to pick things up and she could potentially have hurt it doing that. She denies
any radicular symptoms down the legs. Denies numbness or weakness in the legs and notes specifically that she has been ambulatory. She denies any bowel or bladder incontinence. Denies saddle anesthesia.
Past History
Past History
ED Past Medical History: Arrthythmia, Cancer, GERD, Hypercholesterolemia and Hypothyroidism
ED Past Surgical History: Other
Social History
Tobacco: Former smoker
Alcohol: Daily (wine 1 glass)
Drug: None
Personal:
Living: with family
Employment: Retired
Family History
Family History: Other (Noncontributory)
Review of Systems
Review of Systems
All Other Systems: ROS reviewed and negative except as documented in HPI and ROS
Constitutional: Denies fever
Respiratory: Denies trouble breathing
Cardiac: Denies chest pain
ABD/GI: Denies abdominal pain
: Denies flank pain
Musculoskeletal: Reports back pain
Neurological: Denies headache
Phy Exam
Physical Exam
Physical Exam:
General: Awake, alert, oriented x3; no acute distress
Head: Normocephalic, atraumatic
Eyes: Conjunctiva normal
Throat: Airway intact, handling secretions
Neck: Trachea midline
Lungs: Breathing comfortably with no distress
Heart: Regular rate
Back: Midline upper lumbar tenderness, no spinal step-offs, no bruising or abrasions or other signs of acute trauma
Neuro: Cranial nerves grossly intact, speech fluid; motor and sensory intact in extremities, ambulatory in the ER
Skin: Warm and dry, no rash in the area of concern
Extremities: Warm and well-perfused
Scores
Heart Failure Risk
Heart Failure Risk Score: Not Applicable
Heart Score for Chest Pain Patients
STEMI patient?: Not applicable
Withdrawal Assessment of Alcohol
Withdrawal Assessment Completed?: Not applicable
Course
Orders/Labs/Results
Orders:
Orders
02/10/25 12:27
Lumbar Spine Complete, 4 View [CR Lumbar Spine Comp Min 4 Vw*] Urgent
Comment:
Reason For Exam: pain
02/10/25 14:48
Lidocaine [Lidocaine 4% Patch] 1 patch TOPICAL ONCE ONE
Apply Lidocaine patch(s) to:: low back
02/10/25 14:52
Acetaminophen [Tylenol] 1,000 mg PO NOW STA
Vital Signs
Initial and Last Documented VS:
Initial Vital Signs
Temp Pulse Resp BP Pulse Ox
36.9 C 83 20 147/85 98
02/10/25 12:02/10/25 12:02/10/25 12:02/10/25 12:02/10/25 12:25
Last Documented Vital Signs
Temp Pulse Resp BP Pulse Ox
36.9 C 83 20 147/85 98
02/10/25 12:02/10/25 12:02/10/25 12:02/10/25 12:02/10/25 14:58
MDM/Problems Addressed
Differential Diagnosis Includes:
Compression fracture, muscle strain, muscle spasm
MDM/Problems Addressed:
84-year-old female presents with acute on chronic low back pain in the absence of specific trauma. No signs or symptoms to suggest cauda equina or other spinal emergency. She does however have some midline tenderness. Was sent for a lumbar x-ray
which shows compression fracture. Spoke to patient we will plan to trial Tylenol and Lidoderm and reassess pain control�she is already ambulatory and has not tried much for pain explained the prednisone unlikely to help with this. Reassess after
the above.
Pain controlled here in the ER, patient ambulatory but she is concerned about breakthrough pain particular at nighttime. Explained to her that NSAIDs contraindicated and that next escalation would be a stronger pain medication potentially an
opioid. I explained my concerns about prescribing opioids particular at her age with risk of confusion and falls. She and both feel strongly that she needs something for breakthrough pain if Tylenol and Lidoderm are not sufficient�agreed
to write for a short course of oxycodone with the understanding that she does use this very cautiously and only as needed for severe breakthrough pain. She will follow-up with her primary doctor on an outpatient basis. All questions answered.
Chronic conditions affecting care:
A-fib on Xarelto effects pain management plan (NSAIDs contraindicated)
*Radiology
Radiology exam reviewed: preliminary read by ED provider and radiology read reviewed
*Pulse Oximetry
SaO2: 98
Oxygen Mode of Delivery: Room air
Patient hypoxic: no (98%)
*Critical Care Note
Total Time (30-74mins, 75-104mins- exclusive of procedures): Not Applicable
Data Reviewed
Source: patient
ED Attending Note
-
Portions of this chart may have been created with voice recognition software.� Occasional wrong word or��sound alike� substitutions may have occurred due to the inherent limitations of voice recognition software.
Discharge Plan
Departure
Patient with high blood pressure during this ER visit?: No
Discharge Problem:
Compression fracture of lumbar vertebra
Instructions: Vertebral Compression Fracture ED
Prescriptions:
New
oxycodone 5 mg tablet
5 mg PO BID PRN (Reason: Pain) Qty: 5 0RF
lidocaine [Lidoderm] 5 % adhesive patch,medicated
1 patch topical DAILY Qty: 30 0RF
No Action
levothyroxine [Levoxyl] 112 MCG tablet
112 mcg PO DAILY
pitavastatin calcium [Livalo] 2 MG tablet
2 mg PO DAILY
rivaroxaban [Xarelto] 20 MG tablet
20 mg PO QPM Qty: 15 0RF
metoprolol succinate [Toprol XL] 25 MG tablet extended release 24 hr
25 mg PO DAILY Qty: 30 0RF
albuterol sulfate [ProAir HFA] 90 mcg/actuation HFA aerosol inhaler
1 puff inhalation Q4HPRN PRN (Reason: shortness of breath) Qty: 8.5 0RF
azithromycin [Zithromax] 200 mg/5 mL suspension for reconstitution
See Rx Instructions .ROUTE .COMPLEX Qty: 30 0RF
Rx Instructions:
200 mg daily for 4 days, starting 10/17/22
prednisone 20 mg tablet
40 mg PO DAILY Qty: 6 0RF
Activity Restrictions/Additional Instructions:
Thank you for visiting the Emergency Department at [facility].
1. Please schedule a follow up appointment as directed. Call first thing tomorrow morning to make an appointment.
2. If indicated, please take your medications as instructed and indicated on discharge paperwork.
3. If any of your symptoms do not improve, or persist, or become more severe within 6-12 hours, please return to the emergency department for further care.
4. Please return to the emergency department if you develop a headache, neck pain/stiffness, fever greater than 100.4F, chest pain, shortness of breath, persistent nausea, vomiting, slurred speech, difficulty walking, numbness/tingling, weakness,
signs of infection or any other symptoms that are worrisome to you.
Please call [phone] if you have any questions.
Interventions
Interventions:
*General Assessment Last Done: 02/10/25 12:25
*Neglect/Abuse Screening Last Done: 02/10/25 12:25
*ED COVID-19 Vaccine History Last Done: 02/10/25 15:02
*ED Influenza Vaccine History Last Done: 02/10/25 15:02
[facility] Fall Risk Assessment Tool Last Done: 02/10/25 15:02
*Risk Screen - Suicide (C-SSRS) Last Done: 02/10/25 12:25
ED-Musculoskeletal Assessment Last Done: 02/10/25 15:30
Discharge Date and Time
Print Language: ESTONIAN
[2025-02-10] MEDS: LIDOCAINE 4% PATCH 1 PATCH TOPICAL (15:01)
[2025-02-10] MEDS: TYLENOL 1000 MG PO (15:01)
[2025-02-10 15:02] VITALS: BMI 22.0
== END 2025-02-10 16:17 | disposition home or self-care (01) ==
LOC: EMR 12:23
PROVIDERS: EMERGENCY PHYSICIAN Emergency Medicine; FAMILY PHYSICIAN Family Medicine
DX: M48.56XA Collapsed vertebra, not elsewhere classified, lumbar region, initial encounter for fracture (principal); E03.9 Hypothyroidism, unspecified; E78.00 Pure hypercholesterolemia, unspecified; G89.29 Other chronic pain; I48.91 Unspecified atrial fibrillation; Z79.01 Long term (current) use of anticoagulants; Z87.891 Personal history of nicotine dependence
CPT/HCPCS: 99283; 72110